=== PATIENT | female | born 1955 | race Caucasian/White ===

== ENCOUNTER → 2016-04-15 | Outpatient (REF) | payer BC ==
[~2016-04-15] MED LIST: /AMLO25TA PO; CATA0.1T PO; LEVO125T3 PO; MULTTAB4 PO
== END ==
LOC: M LAB REF 16:28
PROVIDERS: ATTEND Internal Medicine
DX: Z01.818 Encounter for other preprocedural examination (principal)

== ENCOUNTER → 2016-04-18 | Outpatient (CLI) | payer BC ==
--- NOTE | 2016-04-18 11:46 | REP ---
NUCLEAR RENAL SCINTIGRAPHY: Differential flow and function analysis and EGFR assessment. HISTORY: Hydronephrosis and hydroureter. Comparison CT study December 05, 2015. TECHNIQUE: The GFR portion of the study was accomplished with the injection of 3.2 mCi dose of technetium 99m DTPA. Renal cortical regions of interest are drawn for EGFR assessment functional analysis. This was followed by an 8.8 mCi technetium 99m MAG 3 is injected and sequential posterior flow and excretory phase images are acquired. Renal cortical regions of interest are drawn and time activity curves are plotted for renal functional analysis. SCINTIGRAPHIC FINDINGS: The EGFR study shows a GFR calculated for the left kidney 39.2 mL per minute and that for the right kidney and 54.5 mL per minute for an overall calculated GFR of 93.6 mL per minute. The Mag 3 flow study shows bilaterally sluggish radiotracer accumulation in the kidneys. No intrarenal mass is seen. Excretory phase images show caliectasis and dilation of intrarenal collecting system consistent with hydronephrosis on the left. There is some caliectasis on the right as well but no pyelectasis is seen. Postvoid images show retention of upper tract intrarenal collecting system activity on the left. Differential renal function analysis is asymmetric with 31% of overall renal cortical counts coming from the left kidney and 69% from the right. Wscc-jc-bbon max activity is somewhat delayed on the left at 9.0 minutes and normal on the right at 3.0 minutes. Lsxw-cl-znap max activity is somewhat delayed on the right at 16.6 minutes and more delayed on the left greater than 30 minutes. IMPRESSION: Hydronephrosis on the left. Cannot exclude obstructive uropathy. Normal calculated GFR although the right kidney GFR is larger than left. Signed by Patrick Ritchie MD 04/18/2016 01:42 P
== END ==
LOC: M RAD 09:38
PROVIDERS: ATTEND Urology
DX: N13.4 Hydroureter (principal); N13.30 Unspecified hydronephrosis

== ENCOUNTER → 2016-06-10 | Outpatient (CLI) | payer BC ==
[2016-06-10 10:13] LABS: CORTISOL AM 11.2 UG/DL (4.3-22.4)
== END ==
LOC: M LAB 08:53
PROVIDERS: ATTEND Internal Medicine Endocrinology, Diabetes & Metabolism
DX: D35.2 Benign neoplasm of pituitary gland (principal)

== ENCOUNTER → 2016-06-13 | Outpatient (CLI) | payer BC ==
[2016-06-13 09:32] LABS: CORTISOL AM 16.4 UG/DL (4.3-22.4)
== END ==
LOC: M LAB 06:17
DX: D35.2 Benign neoplasm of pituitary gland (principal)

== ENCOUNTER 2016-06-19 21:56 | Emergency (ER) | payer BC ==
[~2016-06-19] VITALS: Ht 172.7 cm; Wt 72.6 kg
[2016-06-19] MEDS ORDERED: PRED5PAK PO (22:08)
[2016-06-19] MEDS ORDERED: HYDR12.55 PO (22:08)
[2016-06-19] MEDS ORDERED: OXYMETAZOLINE NASAL SPRAY (AFRIN) ONE (22:30)
[2016-06-19] MEDS ORDERED: PERCOCET 5MG/325MG TAB PO ONE (23:45)
[2016-06-20] MEDS ORDERED: OXYC1TAB23 PO (00:12)
[2016-06-20] MEDS ORDERED: DOXY100C37 PO (00:12)
[2016-06-20 00:13] VITALS: BP 155/86
[2016-06-20] MEDS ORDERED: OXYCODONE/APAP 5MG/325MG(BULK FOR ED) 1 TABLET PO ONE (00:45)
[2016-06-20] MEDS ORDERED: LEVO137T2 PO (17:55)
[2016-06-21] MEDS ORDERED: PERC7.5T3 PO (11:12)
== END 2016-06-20 01:01 | disposition home or self-care (01) ==
LOC: M ED 23:43
DX: R04.0 Epistaxis (principal); E03.9 Hypothyroidism, unspecified; D69.1 Qualitative platelet defects; Z85.850 Personal history of malignant neoplasm of thyroid; Z90.89 Acquired absence of other organs; Z79.899 Other long term (current) drug therapy

== ENCOUNTER 2016-06-20 06:59 | Day surgery (SDC) | payer BC ==
[2016-06-20] VITALS (7 sets, daily range): BP systolic 136–178; BP diastolic 73–85
[~2016-06-20] VITALS: Ht 165.1 cm; Wt 72.6 kg
[~2016-06-20 06:59] MED LIST changes: +DOXY100C37 PO; +HYDR12.55 PO; +OXYC1TAB23 PO; +PRED5PAK PO
[2016-06-20] MEDS ORDERED: MIDAZOLAM INJ 2 MG/2 ML VIAL (J2250) As Ordered ONE ×2 (08:10→10:16)
[2016-06-20] MEDS ORDERED: MIDAZOLAM INJ 2 MG/2 ML VIAL (J2250) IV STA (08:55)
[2016-06-20 09:38] LABS: MEAN CORPUSCULAR HEMOGLOBIN 21.7 pg (27.0-33.0); MEAN CORPUSCULAR HGB CONC 30.6 g/dl (32.0-36.5); MEAN CORPUSCULAR VOLUME 70.9 fl (80.0-96.0); RED CELL DISTRIBUTION WIDTH 16.3 % (11.5-14.5); WHITE BLOOD COUNT 8.2 K/mm3 (4.0-10.0)
[2016-06-20 09:42] LABS: INR 1.04
[2016-06-20 09:57] LABS: ANION GAP 7 MEQ/L (8-16); BLOOD UREA NITROGEN 30 MG/DL (7-18); CALCIUM LEVEL 8.9 MG/DL (8.8-10.2); CARBON DIOXIDE LEVEL 29 MEQ/L (21-32); CHLORIDE LEVEL 104 MEQ/L (98-107); CREATININE FOR GFR 0.84 MG/DL (0.55-1.02); GLOMERULAR FILTRATION RATE > 60.0 (>45); GLUCOSE, FASTING 123 MG/DL (80-110); POTASSIUM SERUM 4.2 MEQ/L (3.5-5.1); SODIUM LEVEL 140 MEQ/L (136-145)
[2016-06-20] MEDS ORDERED: OXYMETAZOLINE NASAL SPRAY (AFRIN) As Ordered ONE (10:14)
[2016-06-20] MEDS ORDERED: PROPOFOL 200 MG/20 ML VIAL As Ordered ONE (10:16)
[2016-06-20] MEDS ORDERED: fentaNYL 100 MCG/2 ML INJECTION (J3010) As Ordered ONE ×2 (10:16→12:22)
[2016-06-20] MEDS ORDERED: SUCCINYLCHOLINE 100 MG/5 ML SYRINGE (J0330) As Ordered ONE (10:16)
[2016-06-20] MEDS ORDERED: ceFAZolin 2 GM/D5W 50 ML IV BAG (J0690) As Ordered ONE (10:17)
[2016-06-20] MEDS ORDERED: LIDOCAINE 2% INJ 100 MG/5 ML SDV (FOR ANES.) As Ordered ONE (10:18)
[2016-06-20] MEDS ORDERED: ePHEDrine SULFATE 25 MG/5 ML(5MG/ML) SYRINGE As Ordered ONE (10:44)
[2016-06-20] MEDS ORDERED: PHENYLephrine HCL 500 MCG/5 ML (100MCG/ML) SYRINGE (J2370) As Ordered ONE ×3 (10:44→11:20)
[2016-06-20] MEDS ORDERED: LIDOCAINE W/EPINEPHRINE 1% 20ML VIAL As Ordered ONE (10:46)
[2016-06-20] MEDS ORDERED: ONDANSETRON 4MG/2ML VIAL (J2405) As Ordered ONE ×2 (10:51→12:21)
[2016-06-20] MEDS ORDERED: dexameTHASONE 4 MG/ML 1ML VIAL (J1100) As Ordered ONE (10:52)
[2016-06-20] MEDS ORDERED: PERCOCET 5MG/325MG TAB As Ordered ONE (12:22)
[2016-06-20] MEDS: fentaNYL 100 MCG/2 ML INJECTION (J3010) IV PRN ×4 (12:25→12:45)
[2016-06-20] MEDS ORDERED: PERCOCET 5MG/325MG TAB PO PRN ×2 (12:30)
[2016-06-20] MEDS ORDERED: LR 1,000 ML IV SCH ×2 (12:30→15:30)
[2016-06-20] MEDS ORDERED: ACETAMINOPHEN 325 MG TAB PO PRN (12:30)
[2016-06-20] MEDS: PERCOCET 5MG/325MG TAB PO PRN ×3 (12:42→23:12)
[2016-06-20] MEDS ORDERED: ONDANSETRON 4MG/2ML VIAL (J2405) IV PRN (12:45)
[2016-06-20] MEDS ORDERED: SODIUM CHLORIDE NASAL 0.65% SPRAY BTL (OCEAN) PRN (13:00)
[2016-06-20 13:13] LABS: MEAN CORPUSCULAR HEMOGLOBIN 21.8 pg (27.0-33.0); MEAN CORPUSCULAR HGB CONC 30.4 g/dl (32.0-36.5); MEAN CORPUSCULAR VOLUME 71.8 fl (80.0-96.0); RED CELL DISTRIBUTION WIDTH 16.4 % (11.5-14.5); WHITE BLOOD COUNT 10.2 K/mm3 (4.0-10.0)
[2016-06-20] MEDS ORDERED: PROMETHAZINE INJ 25 MG/ML VIAL (J2550) As Ordered ONE (13:15)
[2016-06-20] MEDS ORDERED: PROMETHAZINE INJ 25 MG/ML VIAL (J2550) IV ONE (13:30)
[2016-06-20] MEDS: predniSONE 5 MG TAB PO SCH (15:29)
--- NOTE | 2016-06-20 15:37 | CR.PDOC ---
[facility] Consultation Consultation DATE OF CONSULTATION: Jun 20, 2016 at 09:40 PRIMARY CARE PHYSICIAN: Aggie Mattson DO REFERRING PROVIDER: Mejia Montemayor M.D. ATTENDING PHYSICIAN: Dr. Tidwell of ENT REASON FOR CONSULTATION/CHIEF COMPLAINT: . HISTORY OF PRESENT ILLNESS: . 61-year-old female with past medical history of hyperthyroidism, thyroid cancer status post total thyroidectomy 25 years ago, nephrolithiasis, and Acromegaly status post recent resection of pituitary adenoma at [facility] in [facility] on 06/02/16 presents to the ER with a chief complaint of epistasis. The patient states that she awoke 3:00 in the morning on Monday morning coughing with blood gushing from her nose. She presented to the ER, at which time she had anterior nare packing placed. Upon returning home, the patient had more episodes of epistaxis and returned to the ER for further evaluation and management. She was seen by ENT in the ER, and she was subsequently taken to the operating room where she has had a nasal endoscopy with cauterization of the posterior epistasis. Currently, the patient states she is feeling better, but is still complaining of some pain from the surgical area. She was seen in the postoperative anesthesia unit, and the patient did not offer any further complaints of fevers, chills, shortness of breath, chest pain, palpitations, abdominal pain, or any nausea/vomiting/diarrhea.. At this time, the hospitalist service has been consulted for further assistance in management of the patient's chronic medical comorbidities. ALLERGIES: Please see below. HOME MEDICATIONS: Please see below. PAST MEDICAL HISTORY: As noted in HPI PAST SURGICAL HISTORY: Partial hysterectomy, total thyroidectomy, dilatation and curettage, section, resection of pituitary adenoma on 06/02/16 at [facility], and posterior epistasis status post cauterization during this admission FAMILY HISTORY: Noncontributory SOCIAL HISTORY: Denies any use of tobacco, drinks alcohol occasionally, denies illicit drug use area and lives at home with her and children. REVIEW OF SYSTEMS: 10 point review of systems negative unless otherwise specified in HPI. PHYSICAL EXAMINATION: VITAL SIGNS: Please see below. GENERAL APPEARANCE: . Awake, alert, in mild distress HEENT: . Patient noted to have surgical dressing placed over the upper lip. No active bleeding noted from the nares bilaterally. RESPIRATORY: . Clear to auscultation bilaterally CARDIOVASCULAR: . Normal rate, normal rhythm ABDOMEN: . Soft, nontender, nondistended EXTREMITIES: . No erythema, no tenderness, no swelling LABORATORY DATA: Please see below. ASSESSMENT/PLAN: Posterior epistaxis Status post nasal endoscopy and cauterization No active bleeding noted at this time Hemoglobin prior to and following cauterization noted to be stable Patient noted to be hemodynamically stable at this time We will continue to monitor the patient's H&H ENT on board Thrombocytopenia Platelet count noted to be 79,000 on repeat CBC Platelet count was noted to be 60,000 on admission Looking at the chart, it appears that the patient has been having issues with thrombocytopenia since 2009 At this time, given that the patient does not have any active bleeding, and her hemoglobin has remained stable and we will withhold transfusing any platelets However, if the patient's hemoglobin trends downward, or she develops any active bleeding, we can consider transfusing platelets. Hypertension Blood pressure mildly elevated likely secondary to pain following surgery We will withhold the patient's blood pressure medication for now, in case the patient has any further bleeding episodes Percocet ordered for pain management Acromegaly status post resection of pituitary adenoma Procedure performed at [facility] on 06/02/16 Patient states that she has been put on 5 mg of prednisone since, and we will continue this Thyroid cancer status post total thyroidectomy We will check TSH levels Continue levothyroxine for now DVT prophylaxis-TEDs Vital Signs/I&O Vital Signs Date Time Temp Pulse Resp B/P Pulse Ox O2 Delivery O2 Flow Rate FiO2 06/20/16 14:31 Room Air 06/20/16 14:00 109 18 152/73 100 06/20/16 13:45 97.5 Laboratory Data Labs 24H Laboratory Tests 2 06/20/16 09:26: Activated Partial Thromboplast Time 31.3, Anion Gap 7L, Blood Urea Nitrogen 30H , Creatinine 0.84, Sodium Level 140, Potassium Level 4.2, Chloride Level 104, Carbon Dioxide Level 29, Calcium Level 8.9, Glomerular Filtration Rate > 60.0, Prothromb Time International Ratio 1.04, Prothrombin Time 13.7, Thyroid Stimulating Hormone (TSH) 0.063L CBC/BMP Laboratory Tests 06/20/16 09:26 Calcium Level 8.9, Red Blood Count 4.66, Mean Corpuscular Volume 70.9 L, Mean Corpuscular Hemoglobin 21.7 L, Mean Corpuscular Hemoglobin Concent 30.6 L, Red Cell Distribution Width 16.3 H 06/20/16 12:36 Red Blood Count 4.59, Mean Corpuscular Volume 71.8 L, Mean Corpuscular Hemoglobin 21.8 L, Mean Corpuscular Hemoglobin Concent 30.4 L, Red Cell Distribution Width 16.4 H Allergies Coded Allergies: No Known Drug Allergy (Unverified Allergy, Unknown, 06/28/12) Home Medications Scheduled Doxycycline Monohydrate (Doxycycline Monohydrate) 100 Mg Cap #20 100 MG PO Q12H Hydrochlorothiazide (Hydrochlorothiazide) 12.5 Mg Tab 25 MG PO DAILY (Reported ) Levothyroxine Sodium (Levothyroxine Sodium) 125 Mcg Tab 137 MCG PO DAILY ( Reported) Scheduled PRN Oxycodone/Acetaminophen (Oxycodone/Acetaminophen 5-325 mg) 1 Tab Tab #20 1 TAB PO Q6HP PRN PRN PAIN OR FEVER Miscellaneous Medications Prednisone (Prednisone) 5 Mg Weston 5 MG PO (Reported) MEJIA MONTEMAYOR MD Jun 20, 2016 15:37
[2016-06-20] MEDS ORDERED: MORPHINE 2 MG/ML 1ML SYRINGE IV PRN (15:45)
[2016-06-20] MEDS ORDERED: MORPHINE 2 MG/ML 1ML SYRINGE As Ordered ONE (15:52)
[2016-06-20] MEDS: SODIUM CHLORIDE NASAL 0.65% SPRAY BTL (OCEAN) SCH ×2 (16:23→22:00)
[2016-06-20] MEDS: LEVOTHYROXINE 0.137 MG TAB (137MCG) PO SCH (17:24)
[2016-06-20] MEDS: ceFAZolin SOD 1 GM in D5W MINI-BAG PLUS 50 ML IV SCH (17:36)
[2016-06-20] MEDS ORDERED: LEVO137T2 PO (17:55)
[2016-06-21] MEDS: ceFAZolin SOD 1 GM in D5W MINI-BAG PLUS 50 ML IV SCH ×2 (02:05→08:43)
[2016-06-21 03:15] VITALS: BP 115/69
[2016-06-21] MEDS: LEVOTHYROXINE 0.137 MG TAB (137MCG) PO SCH (06:06)
[2016-06-21] MEDS: PERCOCET 5MG/325MG TAB PO PRN ×2 (06:07→09:57)
[2016-06-21 07:17] LABS: MEAN CORPUSCULAR HEMOGLOBIN 21.7 pg (27.0-33.0); MEAN CORPUSCULAR HGB CONC 30.1 g/dl (32.0-36.5); MEAN CORPUSCULAR VOLUME 72.1 fl (80.0-96.0); RED CELL DISTRIBUTION WIDTH 16.7 % (11.5-14.5); WHITE BLOOD COUNT 10.9 K/mm3 (4.0-10.0)
[2016-06-21 07:26] LABS: CALCIUM LEVEL 8.7 MG/DL (8.8-10.2); CREATININE FOR GFR 1.11 MG/DL (0.55-1.02); GLOMERULAR FILTRATION RATE 53.4 (>45); POTASSIUM SERUM 4.2 MEQ/L (3.5-5.1)
[2016-06-21] MEDS: predniSONE 5 MG TAB PO SCH (08:43)
[2016-06-21] MEDS: SODIUM CHLORIDE NASAL 0.65% SPRAY BTL (OCEAN) SCH (08:44)
--- NOTE | 2016-06-21 10:09 | ROOPDOC ---
[facility] Report Of Operation Report of Operation DATE OF PROCEDURE: 06/20/16 PREPROCEDURE DIAGNOSIS: Left posterior epistaxis 3 weeks status post transsphenoidal resection of pituitary adenoma POSTPROCEDURE DIAGNOSIS: See above PROCEDURE: 1. Left inferior turbinate outfracture 2. Left endoscopic control of epistaxis with cautery 3. Biopsy of left nasopharyngeal tissue SURGEON: Shashi Mary M.D. ELECTRICAL ACCESSORIES I ASSEMBLER: None ANESTHESIA: General endotracheal Packing placed would include re-absorbable Surgicel and nasal pore Estimated blood loss would be approximately 100 mL during the procedure FINDINGS: The patient was found to have generalized oozing from the mid and posterior portion of the nasal septum. Posteriorly there appeared to be a mucosal flap near the rostrum of the sphenoid sinus. There appeared to be loose mucosa in this area that was partially resected and cauterized with the suction cautery. There were large clots removed from this area and irrigated away. There appeared to be some loose tissue but this may have been organized blood clots. These were sent for pathologic evaluation. There did not appear to be arterial bleeding or significant bleeding at the posterior edge of the inferior turbinate or in the area of the sphenopalatine artery. Bioabsorbable Surgicel and nasal pore packing material is placed at the end of the procedure at the surgical site. DESCRIPTION OF PROCEDURE: The patient was seen initially in the emergency room where nasal endoscopy was carried out and silver nitrate cautery was carried out however due to the large clot and significant discomfort in the left nasal passageway it was decided that the patient should be taken to the operating room. This was discussed with the patient and her and she was therefore taken emergently to the operating room for endoscopic evaluation and cautery as needed. It should also be noted that I spoke with Dr. Mejia who is her neurosurgeon in [place] prior to the procedure to discuss the case. He fully agreed with the procedure and discussed with me the surgical approach at the posterior septum. The patient was taken to the operating room and given a successful general endotracheal anesthetic. A timeout was performed. The nasal area was prepped and draped with Betadine. Nasal pledgets soaked in Afrin were placed in the left nasal passageway. The patient was placed in a modified beachchair position. Initially using a headlight the nasal passageway on the left and the right were suctioned. A 0 4 mm scope was then used to evaluate both the right and left nasal passageway. No bleeding or significant clots were noted on the right side. On the left side we irrigated the blood clots away using a significant amount of saline to carefully remove the blood clots under visualization with the nasal endoscope. Once we removed the clots we use the nasal scope with the Endo sheath to allow for careful visualization of the posterior nasal and septal mucosa. We outfractured the left inferior turbinate to provide for better visualization as there was a small but somewhat prominent inferior septal spur on the left side. We cauterized several mid and posterior mucosal oozing edges before approaching the posterior septum and superiorly we were able to see a flap of mucosa that appeared to be slightly displaced. The bleeding appeared to be coming from this area and this did not appear to be arterial. We used suction cautery to cauterize the edges of the mucosa and more superiorly towards the rostrum of the sphenoid sinus. We were careful to irrigate away the blood and debris in this area and we noted what appeared to be a free-floating or minimally attached mucosal edge at the inferior area of the nasal septum. His was removed with a [employer] iván forcep and the area was cauterized. This may have been a very well organized blood clot. Careful irrigation was carried out throughout this area. As completed, we placed Surgicel and a section of nasal pore both of which are bioabsorbable. We then gently irrigated out the nose specifically the left nostril over a period of about 10 minutes during which time there was no active bleeding whatsoever. We placed several nasal pledgets in the nose soaked in Afrin during this time. An remove these and these appeared to show no evidence of active bleeding. He also suctioned out the throat to make sure that all blood clots were removed from the patient's oropharynx. At this point the procedure was terminated and all nasal pledgets were removed. At the end of the procedure the sharp count and sponge count and nasal pledget count were correct. Should be noted that we injected approximately 3 mL of 1% lidocaine with epinephrine 1 100,000 into the nasal pore at the end of the procedure. The patient was awakened and extubated and taken to the recovery room in stable condition. Noted to be no complications. The patient did have a fingerstick hemoglobin during the procedure which was 8.8. The patient was taken in stable condition to the PACU. SHASHI MARY MD Jun 20, 2016 16:40
--- NOTE | 2016-06-21 10:24 | IPNPDOC ---
Subjective Date Seen The patient was seen on 06/21/16. She has had no further bleeding. She c/o left eye sensitivity and headache ( 8 - 9/10) relieved somewhat by percocet (she needs 2 of the 5/325 tablets) She has been sleeping, ambulating and tolerating po relatively well. No nausea or vomiting. Subjective Chief Complaint/HPI The patient is a 61-year-old female admitted for ER visit of Left Epistaxis. She is on day 1 postop for control of left sided posterior epistaxis. Please see above. Objective Physical Examination Other physical findings No visual changes with EOMs intact and reactive pupils No nasal bleeding voice is normal Assessment /Plan Assessment She is stable but continues to have a significant headache No further epistaxis Plan is likely discharge home with pain control (Percocet 7.5/325 1-2 po prn pain) F/U in 2 days for nasal endoscopy/debridement gentle nasal irrigations no nose blowing reviewed D/C instructions with the patient and her Also noted stable Hct and Hgb Plan/VTE VTE Prophylaxis Ordered?: Yes VTE Exclusion Mechanical Proph: Low Risk for VTE VS, I&O, 24H, Pending Sale To [facility] Vital Signs/I&O Vital Signs Date Time Temp Pulse Resp B/P Pulse Ox O2 Delivery O2 Flow Rate FiO2 06/21/16 09:57 16 06/21/16 06:07 Room Air 06/21/16 03:15 97.3 64 115/69 95 I&O- Last 24 Hours up to 6 AM 06/21/16 05:59 Intake Total 2260 ml Output Total 2400 ml Balance -140 ml Laboratory Data 24H LABS Laboratory Tests 2 06/21/16 06:43: Anion Gap 12, Blood Urea Nitrogen 25H, Creatinine 1.11H, Sodium Level 139, Potassium Level 4.2, Chloride Level 103, Carbon Dioxide Level 24, Calcium Level 8.7L, Glomerular Filtration Rate 53.4 CBC/BMP Laboratory Tests 06/20/16 12:36 Red Blood Count 4.59, Mean Corpuscular Volume 71.8 L, Mean Corpuscular Hemoglobin 21.8 L, Mean Corpuscular Hemoglobin Concent 30.4 L, Red Cell Distribution Width 16.4 H 06/20/16 18:56 06/21/16 01:04 06/21/16 06:43 Red Blood Count 4.35, Mean Corpuscular Volume 72.1 L, Mean Corpuscular Hemoglobin 21.7 L, Mean Corpuscular Hemoglobin Concent 30.1 L, Red Cell Distribution Width 16.7 H, Calcium Level 8.7 L SHASHI MARY MD Jun 21, 2016 10:24
[2016-06-21] MEDS ORDERED: PERC7.5T3 PO (11:12)
--- NOTE | 2016-06-21 16:28 | IPN ---
DATE: 06/21/2016 Patient is seen and examined, reported bitemporal headache. Denies any vision change, hearing change, nausea or vomiting. Denies any chest pain, pressure or discomfort. No further episode of epistaxis. VITAL SIGNS: Temperature 97.3, pulse 64, respiration 12, blood pressure 115/69, pulse oximetry 95% on room air. LABORATORY DATA: WBC 10.9, hemoglobin and hematocrit 9.4/31.3, platelets 66. Chemistry: Sodium 139, potassium 4.2, chloride 103, bicarbonate 24, BUN 25, creatinine 1.1. PHYSICAL EXAMINATION: GENERAL: Patient awake, alert, in no acute distress. HEENT: Normocephalic, atraumatic. No active bleeding. RESPIRATORY: Bilaterally clear to auscultation. CARDIAC: Regular rate and rhythm with normal S1, S2. ABDOMEN: Soft, nontender, nondistended. Positive bowel sounds. EXTREMITIES: No edema of bilateral lower extremities. ASSESSMENT AND PLAN: This is a 61-year-old female patient with underlying medical history of thyroid cancer status post total thyroidectomy with subsequent hypothyroidism, nephrolithiasis, acromegaly status post recent resection of pituitary adenoma at [facility] in [place] 06/02/2016. Patient presented with complaints of epistaxis, admitted under ears, nose and throat (ENT) service, status post nasal endoscopy with cauterization. Perioperative management, antibiotics, and pain regimen as per ENT. Monitor hemoglobin and hematocrit. Discharge as per ENT. Thrombocytopenia. Monitor platelets. Outpatient followup. Currently at baseline. Hypertension. Monitor blood pressure. Continue blood pressure medications. Hypothyroidism. Continue Synthroid. History of acromegaly with removal of pituitary adenoma. Followup with surgeons at [facility]. Deep vein thrombosis (DVT) prophylaxis. Thromboembolic-deterrent stockings (TEDS) and sequential compression device. No pharmacological agent given epistaxis. DISPOSITION: As per ENT, patient likely can be discharged today with outpatient followup.
== END 2016-06-21 12:20 | disposition home or self-care (01) ==
LOC: M ED 07:26 → M SDC 09:40 → M MS5PR 15:00 → M SDC 06-21 12:20
PROVIDERS: ATTEND Otolaryngology
DX: R04.0 Epistaxis (principal); E03.9 Hypothyroidism, unspecified; Z79.899 Other long term (current) drug therapy
CPT/HCPCS: 30930; 31238; 36415; 80048; 84436; 84443; 85014; 85018; 85027; 85610; 85730; 86850; 86870; 86900; 86901; 88305; 96374; 96375; 96376; 99284; J0330; J0690; J1100; J2250; J2370; J2405; J3010

== ENCOUNTER → 2016-07-15 | Outpatient (CLI) | payer BC ==
[~2016-07-15] MED LIST changes: +LEVO137T2 PO; +PERC7.5T3 PO
[2016-07-15 08:56] LABS: FREE T4 1.37 NG/DL (0.76-1.46); THYROXINE (T4) 12.9 UG/DL (4.5-12.0)
[2016-07-15 11:58] LABS: CORTISOL AM 21.4 UG/DL (4.3-22.4)
[2016-07-15 11:59] LABS: LUTEINIZING HORMONE 37.6 mIU/mL; PROLACTIN 8.8 NG/ML
[2016-07-15 12:00] LABS: FOLLICLE STIMULATING HORMONE 99.8 mIU/mL
== END ==
LOC: M LAB 06:18
PROVIDERS: ATTEND Internal Medicine Endocrinology, Diabetes & Metabolism
DX: E22.0 Acromegaly and pituitary gigantism (principal)

== ENCOUNTER → 2016-07-15 | Outpatient (CLI) | payer BC ==
[2016-07-15 08:56] LABS: FREE T4 1.35 NG/DL (0.76-1.46)
[2016-07-15 11:57] LABS: CORTISOL AM 21.6 UG/DL (4.3-22.4); FOLLICLE STIMULATING HORMONE 94.2 mIU/mL; LUTEINIZING HORMONE 36.2 mIU/mL
== END ==
LOC: M LAB 06:16
PROVIDERS: ATTEND Internal Medicine Endocrinology, Diabetes & Metabolism
DX: E22.0 Acromegaly and pituitary gigantism (principal)

== ENCOUNTER → 2016-07-22 | Outpatient (CLI) | payer BC ==
--- NOTE | 2016-07-22 11:45 | REP ---
PELVIC ULTRASOUND: Real-time sonographic evaluation of the pelvis is performed utilizing transabdominal and endovaginal technique. The patient has had a prior hysterectomy and left salpingo-oophorectomy. The bladder measures 4.6 x 8.2 x 2.4 cm. Right ovary is visualized and measures 2.2 x 1.6 x 2.5 cm. It contains a tiny cystic structure 2.0 x 1.2 x 1.5 cm. There is blood flow in the right ovary with duplex Doppler evaluation, with no torsion, RI of the right ovary is 0.42. There is no adnexal mass or free fluid. IMPRESSION: Small cystic structure in the right ovary 2 cm in diameter. No mass or free fluid.
== END ==
LOC: M WHC 10:16
PROVIDERS: ATTEND Obstetrics & Gynecology Gynecologic Oncology
DX: D39.12 Neoplasm of uncertain behavior of left ovary (principal)

== ENCOUNTER 2016-07-27 07:43 | Outpatient (CLI) | payer BC | END 2016-07-27 10:15 | disposition home or self-care (01) | LOC: M INFU 07:43 | PROVIDERS: ATTEND Internal Medicine Endocrinology, Diabetes & Metabolism | DX: E22.0 Acromegaly and pituitary gigantism (principal); Z79.899 Other long term (current) drug therapy ==

== ENCOUNTER → 2016-09-19 | Outpatient (REF) | payer BC ==
[2016-09-19 11:25] LABS: PERCENT SATURATION 5.2 % (13.2-37.4)
== END ==
LOC: M LAB REF 10:50
PROVIDERS: ATTEND Internal Medicine Medical Oncology
DX: C56.9 Malignant neoplasm of unspecified ovary (principal); D69.3 Immune thrombocytopenic purpura

== ENCOUNTER → 2016-11-03 | Outpatient (CLI) | payer BC ==
[~2016-11-03] MED LIST changes: +PERC7.5T11 PO; -PERC7.5T3 PO
[2016-11-03 07:51] LABS: CALCIUM LEVEL 9.1 MG/DL (8.8-10.2)
[2016-11-03 08:42] LABS: FREE T4 1.52 NG/DL (0.76-1.46)
== END ==
LOC: M LAB 07:01
PROVIDERS: ATTEND Internal Medicine Endocrinology, Diabetes & Metabolism
DX: N20.0 Calculus of kidney (principal); E22.0 Acromegaly and pituitary gigantism; E89.0 Postprocedural hypothyroidism

== ENCOUNTER → 2016-11-08 | Outpatient (REF) | payer BC ==
[2016-11-08 15:24] LABS: PERCENT SATURATION 4.8 % (13.2-45.0)
== END ==
LOC: M LAB REF 12:49
PROVIDERS: ATTEND Internal Medicine Medical Oncology
DX: C56.9 Malignant neoplasm of unspecified ovary (principal)

== ENCOUNTER 2016-12-15 07:34 | Outpatient (CLI) | payer BC | END 2016-12-15 11:00 | disposition home or self-care (01) | LOC: M INFU 07:34 | PROVIDERS: ATTEND Internal Medicine Endocrinology, Diabetes & Metabolism | DX: E22.0 Acromegaly and pituitary gigantism (principal); E89.0 Postprocedural hypothyroidism; E11.9 Type 2 diabetes mellitus without complications; I10 Essential (primary) hypertension; Z79.899 Other long term (current) drug therapy; Z85.850 Personal history of malignant neoplasm of thyroid ==

== ENCOUNTER → 2016-12-26 | Outpatient (REF) | payer BC ==
[2016-12-26 13:30] LABS: CALCIUM LEVEL 9.2 MG/DL (8.8-10.2); FREE T4 1.42 NG/DL (0.76-1.46); PHOSPHORUS LEVEL 3.4 MG/DL (2.5-4.9)
[2017-01-02 13:10] LABS: THYROGLOBULIN ANTIBODY 32; THYROGLOBULIN INTERPRETATION SEE SEPARATE REPORT; THYROGLOBULIN TUMOR MARKER <0.1
== END ==
LOC: M LABNEURO 10:03
PROVIDERS: ATTEND Internal Medicine Endocrinology, Diabetes & Metabolism
DX: E89.0 Postprocedural hypothyroidism (principal); N20.0 Calculus of kidney

== ENCOUNTER → 2017-02-14 | Outpatient (REF) | payer BC ==
[2017-02-14 14:34] LABS: ANION GAP 6 MEQ/L (8-16); BLOOD UREA NITROGEN 16 MG/DL (7-18); CALCIUM LEVEL 9.1 MG/DL (8.8-10.2); CARBON DIOXIDE LEVEL 27 MEQ/L (21-32); CHLORIDE LEVEL 106 MEQ/L (98-107); CREATININE FOR GFR 0.84 MG/DL (0.55-1.02); GLOMERULAR FILTRATION RATE > 60.0 (>45); GLUCOSE, FASTING 138 MG/DL (80-110); POTASSIUM SERUM 4.4 MEQ/L (3.5-5.1); SODIUM LEVEL 139 MEQ/L (136-145)
== END ==
LOC: M LABNEURO 13:36
DX: D35.2 Benign neoplasm of pituitary gland (principal); D35.3 Benign neoplasm of craniopharyngeal duct

== ENCOUNTER → 2017-04-03 | Outpatient (REF) | payer BC ==
[2017-04-03 13:03] LABS: APPEARANCE, URINE CLEAR (CLEAR); BACTERIA, URINE AUTO NEGATIVE (NEGATIVE); BILIRUBIN, URINE AUTO NEGATIVE (NEGATIVE); BLOOD, URINE BLOOD 2+ (NEGATIVE); COLOR, URINE YELLOW (YELLOW); GLUCOSE, URINE (UA) AUTO NEGATIVE (NEGATIVE); KETONE, URINE AUTO NEGATIVE (NEGATIVE); LEUKOCYTE ESTERASE, URINE AUTO 1+ (NEGATIVE); MUCUS, URINE SMALL (NEGATIVE); NITRITE, URINE AUTO NEGATIVE (NEGATIVE); PROTEIN, URINE AUTO NEGATIVE (NEGATIVE); RBC, URINE AUTO 10 /HPF (0-3); SPECIFIC GRAVITY URINE AUTO 1.016 (1.002-1.035); SQUAMOUS EPITHELIAL CELL UR AU 1 /HPF (0-6); UROBILINOGEN, URINE AUTO 0.2 mg/dL (0.0-2.0); WBC, URINE AUTO 7 /HPF (0-3)
== END ==
LOC: M LAB REF 11:56
DX: Z01.818 Encounter for other preprocedural examination (principal)
CPT/HCPCS: 81001

== ENCOUNTER → 2017-05-16 | Outpatient (REF) | payer BC ==
[2017-05-19 00:06] LABS: INHIBIN A ULTRASENSITIVE 1.1 pg/mL (.)
[2017-05-19 00:06] LABS: INHIBIN B <7.0 pg/mL (0.0-16.9)
== END ==
LOC: M LABNEURO 09:06
DX: D39.12 Neoplasm of uncertain behavior of left ovary (principal)
CPT/HCPCS: 83520

== ENCOUNTER → 2017-05-16 | Outpatient (REF) | payer BC ==
[2017-05-16 14:58] LABS: CALCIUM LEVEL 9.6 MG/DL (8.8-10.2)
[2017-05-16 14:58] LABS: FREE T4 1.39 NG/DL (0.76-1.46); PHOSPHORUS LEVEL 3.3 MG/DL (2.5-4.9)
[2017-05-18 10:14] LABS: SOMATOMEDIN-C INSULIN GROWTH 249 ng/mL (46-172)
== END ==
LOC: M LABNEURO 09:02
DX: E89.0 Postprocedural hypothyroidism (principal); E21.0 Primary hyperparathyroidism
CPT/HCPCS: 82310

== ENCOUNTER → 2017-05-31 | Outpatient (CLI) | payer BC ==
[~2017-05-31] MED LIST changes: -/AMLO25TA PO; -CATA0.1T PO; -DOXY100C37 PO; +GASTROGRAFIN SOLUTION 30ML (Q9963) As Ordered; -HYDR12.55 PO; +ISOVUE-370 76% 100ML VIAL (Q9967) As Ordered; -LEVO125T3 PO; -LEVO137T2 PO; -MULTTAB4 PO; -OXYC1TAB23 PO; -PERC7.5T11 PO; -PRED5PAK PO
== END ==
LOC: M RAD 09:31
DX: D39.12 Neoplasm of uncertain behavior of left ovary (principal)

== ENCOUNTER → 2017-06-01 | Outpatient (CLI) | payer BC | LOC: M RAD 09:30 | DX: Z53.29 Procedure and treatment not carried out because of patient's decision for other reasons (principal); E21.0 Primary hyperparathyroidism ==

== ENCOUNTER → 2017-08-15 | Outpatient (CLI) | payer BC | LOC: M WHC 12:24 | DX: Z12.31 Encounter for screening mammogram for malignant neoplasm of breast (principal); R92.8 Other abnormal and inconclusive findings on diagnostic imaging of breast | CPT/HCPCS: 77067 ==

== ENCOUNTER → 2018-05-11 | Outpatient (REF) | payer BC ==
[~2018-05-11] MED LIST changes: +/AMLO25TA PO; +CATA0.1T PO; +DOXY100C37 PO; -GASTROGRAFIN SOLUTION 30ML (Q9963) As Ordered; +HYDR12.55 PO; -ISOVUE-370 76% 100ML VIAL (Q9967) As Ordered; +LEVO125T3 PO; +LEVO137T2 PO; +MULTTAB4 PO; +OXYC1TAB23 PO; +PERC7.5T11 PO; +PRED5PAK PO
[2018-05-11 13:44] LABS: BLOOD UREA NITROGEN 25 MG/DL (7-18); CALCIUM LEVEL 8.9 MG/DL (8.8-10.2); CARBON DIOXIDE LEVEL 30 MEQ/L (21-32); CHLORIDE LEVEL 104 MEQ/L (98-107); CREATININE FOR GFR 0.92 MG/DL (0.55-1.30); GLOMERULAR FILTRATION RATE > 60.0 (>45); GLUCOSE, FASTING 131 MG/DL (70-100); POTASSIUM SERUM 4.3 MEQ/L (3.5-5.1); SODIUM LEVEL 141 MEQ/L (136-145)
== END ==
LOC: M LABNEURO 08:32
PROVIDERS: ATTEND Neurological Surgery
DX: D35.2 Benign neoplasm of pituitary gland (principal); D35.3 Benign neoplasm of craniopharyngeal duct

== ENCOUNTER → 2018-07-19 | Outpatient (REF) | payer BC ==
[~2018-07-19] MED LIST changes: -/AMLO25TA PO; +NORV2TAB PO
== END ==
LOC: M SFHCPLAZ 18:33
PROVIDERS: ATTEND Dermatology
DX: D48.5 Neoplasm of uncertain behavior of skin (principal)

== ENCOUNTER → 2018-12-19 | Outpatient (CLI) | payer BC ==
--- NOTE | 2018-12-19 09:03 | REPMRS ---
Patient History The patient states she had a clinical breast exam in 07/2018. Family history of ovarian cancer at age 50 or over in maternal aunt. 3D TOMOSYNTHESIS WAS PERFORMED. The [facility] lifetime risk for breast cancer is 7.1%. Digital Woman Screen Mammo: December 19, 2018 - Exam #: [id number] Bilateral CC and MLO view(s) were taken. Technologist: Rubia Maya, Technologist Prior study comparison: August 15, 2017, digital woman screen mammo performed at [facility]. May 19, 2015, digital woman screen mammo performed at [facility]. FINDINGS: The breast tissue is heterogeneously dense. This may lower the sensitivity of mammography. There has been no change in the appearance of the mammogram from the prior studies. There is a moderate amount of residual fibroglandular tissue which is fairly symmetric. There is no interval development of dominant mass, areas of architectural distortion, or clustered microcalcification typical of malignancy. Assessment: BI-RADS/ACR category 1 mammogram. Negative Mammogram. Recommendation Routine screening mammogram in 1 year (for women over age 40). This mammogram was interpreted with the aid of an FDA-approved computer-aided dectection system. Electronically Signed By: Walter Dunbar MD 12/19/18 0902
== END ==
LOC: M WHC 07:52
PROVIDERS: ATTEND Obstetrics & Gynecology Gynecologic Oncology
DX: Z12.31 Encounter for screening mammogram for malignant neoplasm of breast (principal)

== ENCOUNTER → 2019-05-17 | Outpatient (REF) | payer BC ==
[2019-05-17 15:32] LABS: BLOOD UREA NITROGEN 19 MG/DL (7-18); CALCIUM LEVEL 10.3 MG/DL (8.8-10.2); CARBON DIOXIDE LEVEL 32 MEQ/L (21-32); CHLORIDE LEVEL 106 MEQ/L (98-107); CREATININE FOR GFR 0.94 MG/DL (0.55-1.30); GLOMERULAR FILTRATION RATE > 60.0 (>45); GLUCOSE, FASTING 96 MG/DL (70-100); POTASSIUM SERUM 4.1 MEQ/L (3.5-5.1); SODIUM LEVEL 139 MEQ/L (136-145)
== END ==
LOC: M LABDRAW1 12:43
PROVIDERS: ATTEND Neurological Surgery
DX: D35.2 Benign neoplasm of pituitary gland (principal)

== ENCOUNTER → 2020-01-03 | Outpatient (REF) | payer OTHER ==
[2020-01-03 17:01] LABS: AMORPHOUS SEDIMENT SMALL (NEGATIVE); APPEARANCE, URINE HAZY (CLEAR); BACTERIA, URINE AUTO NEGATIVE (NEGATIVE); BILIRUBIN, URINE AUTO NEGATIVE (NEGATIVE); BLOOD, URINE BLOOD 1+ (NEGATIVE); COLOR, URINE YELLOW (YELLOW); GLUCOSE, URINE (UA) AUTO NEGATIVE (NEGATIVE); KETONE, URINE AUTO NEGATIVE (NEGATIVE); LEUKOCYTE ESTERASE, URINE AUTO 1+ (NEGATIVE); NITRITE, URINE AUTO NEGATIVE (NEGATIVE); PROTEIN, URINE AUTO NEGATIVE (NEGATIVE); RBC, URINE AUTO 48 /HPF (0-3); SPECIFIC GRAVITY URINE AUTO 1.013 (1.002-1.035); SQUAMOUS EPITHELIAL CELL UR AU 0 /HPF (0-6); UROBILINOGEN, URINE AUTO 0.2 mg/dL (0.0-2.0); WBC, URINE AUTO 17 /HPF (0-3)
== END ==
LOC: M LAB REF 16:15
PROVIDERS: ATTEND Internal Medicine
DX: Z01.818 Encounter for other preprocedural examination (principal)

== ENCOUNTER → 2020-02-13 | Outpatient (CLI) | payer OTHER ==
--- NOTE | 2020-02-13 09:29 | REPMRS ---
Patient History The patient states she had a clinical breast exam in 01/2020. Patient has history of thyroid cancer at age 43. Family history of ovarian cancer at age 50 or over in maternal aunt. No Hormone Replacement Therapy 3D TOMOSYNTHESIS WAS PERFORMED. The [facility] lifetime risk for breast cancer is 6.8%. Volpara breast density c. Digital Woman Screen Mammo: February 13, 2020 - Exam #: [id number] Bilateral CC and MLO view(s) were taken. Technologist: Helen Ghosh, Technologist Prior study comparison: December 19, 2018, bilateral digital woman screen mammo performed at [facility]. August 15, 2017, digital woman screen mammo performed at [facility]. FINDINGS: The breast tissue is heterogeneously dense. This may lower the sensitivity of mammography. There has been no change in the appearance of the mammogram from the prior studies. There is a moderate amount of residual fibroglandular tissue which is fairly symmetric. There is no interval development of dominant mass, areas of architectural distortion, or clustered microcalcification typical of malignancy. Assessment: BI-RADS/ACR category 1 mammogram. Negative Mammogram. Recommendation Routine screening mammogram in 1 year (for women over age 40). This mammogram was interpreted with the aid of an FDA-approved computer-aided dectection system. Electronically Signed By: Walter Dunbar MD 02/13/20 0928
--- NOTE | 2020-02-13 09:51 | REP ---
INDICATION: AVINASH BREAST U/S FOR DENSE BREAST. COMPARISON: Mammogram 02/13/2020. TECHNIQUE: Real-time sonographic evaluation of bilateral breasts performed. FINDINGS: Real-time sonographic evaluation of the entire bilateral breasts is performed. A large benign calcification is seen at 12 o'clock in the right breast. There is an adjacent cyst 5 mm in diameter. A small cyst is also seen at the 11 o'clock position measuring 4 mm. At the 1 o'clock position of the right breast there is an oval hyperechoic nodule which measures 8 x 4 x 4 mm. Several lymph nodes are seen in both axillary regions, largest on the right measures 2.8 x 1.7 x 0.7 cm and left 1.8 x 1.9 x 0.9 cm. These appear morphologically unremarkable with no cortical thickening. No other cystic or solid nodule is seen in either breast. IMPRESSION: BIRADS/ACR category 4 suspicious. An oval hyperechoic nodule in the right breast at 1 o'clock measures 8 x 4 x 4 mm. Although this could represent a lipoma, the sonographic appearance is not specific. Recommend ultrasound-guided biopsy or MRI. RECOMMENDATION: Ultrasound-guided biopsy of hyperechoic nodule at 1 o'clock right breast, or alternatively further evaluation with MRI of the breasts. <Electronically signed by Walter Dunbar > 02/13/20 [id number]
== END ==
LOC: M WHC 07:57
PROVIDERS: ATTEND Nurse Practitioner
DX: R92.2 Inconclusive mammogram (principal); Z85.850 Personal history of malignant neoplasm of thyroid

== ENCOUNTER → 2020-02-14 | Outpatient (CLI) | payer OTHER ==
[2020-02-14 12:17] LABS: ALBUMIN 3.9 GM/DL (3.2-5.2); BILIRUBIN,TOTAL 0.9 MG/DL (0.2-1.0); CALCIUM LEVEL 9.9 MG/DL (8.8-10.2); GLOMERULAR FILTRATION RATE 59.6 (>45); MAGNESIUM LEVEL 1.9 MG/DL (1.8-2.4); POTASSIUM SERUM 4.1 MEQ/L (3.5-5.1); PTH INTACT 80.1 PG/ML (18.5-88.0); TOTAL PROTEIN 6.8 GM/DL (6.4-8.2)
== END ==
LOC: M WUC 08:11
PROVIDERS: ATTEND Internal Medicine Nephrology
DX: E83.52 Hypercalcemia (principal)

== ENCOUNTER → 2020-07-16 | Outpatient (CLI) | payer OTHER ==
--- NOTE | 2020-07-16 13:09 | REP ---
INDICATION: N63.3 RT BREAST NODULE,DENSE BREAST. COMPARISON: Comparison mammography 13 February 2020. Comparison sonography 13 February 2020.. TECHNIQUE: Whole breast/axillary ultrasound right breast. FINDINGS: Scanning of the right breast retroareolar and axillary region is performed. A benign calcification is seen 0.3 cm in diameter at 12 o'clock as before. This corresponds with mammogram. There is a 0.5 cm cyst again noted at 12 o'clock position. At 11 o'clock there is a 0.4 cm cyst. The hyperechoic area previously noted at the 1 o'clock position is no longer evident. there are 1 or 2 prominent retroareolar ducts seen. Multiple benign lymph nodes are noted in the axilla the largest of which measures 3.4 x 0.7 x 1.1 cm. This has a 1 mm thick cortical margin. IMPRESSION: BI-RADS category 2 benign findings. Repeat screening mammography recommended in January of 2021. <Electronically signed by Uri Ritchie > 07/16/20 [id number]
== END ==
LOC: M WHC 07:29
PROVIDERS: ATTEND Nurse Practitioner
DX: N63.31 Unspecified lump in axillary tail of the right breast (principal)

== ENCOUNTER 2020-07-31 16:09 | Emergency (ER) | payer OTHER ==
[~2020-07-31] VITALS: Ht 175.3 cm; Wt 73.0 kg
[2020-07-31] MEDS ORDERED: CABE0.5T (16:31)
[2020-07-31] MEDS ORDERED: HYDR12CA (16:31)
[2020-07-31] MEDS ORDERED: POTA4.25 (16:31)
[2020-07-31] MEDS ORDERED: SYNT112T2 (16:31)
[2020-07-31] MEDS ORDERED: JANU100T (16:31)
[2020-07-31 17:50] LABS: BASO % 0.3 % (0.0-1.0); EOS # 0.2 10^3/uL (0.0-0.5); HEMATOCRIT 45.4 % (36.0-47.0); HEMOGLOBIN 15.2 g/dl (12.0-15.5); LYMPH # 1.7 10^3/uL (1.5-5.0); LYMPH % 16.5 % (24.0-44.0); MEAN CORPUSCULAR HEMOGLOBIN 26.2 pg (27.0-33.0); MEAN CORPUSCULAR HGB CONC 33.5 g/dl (32.0-36.5); MEAN CORPUSCULAR VOLUME 78.3 fl (80.0-96.0); MONO # 0.5 10^3/uL (0.0-0.8); MONO % 4.6 % (2.0-8.0); NEUTROPHILS # 7.6 10^3/uL (1.5-8.5); NEUTROPHILS % 76.2 % (36.0-66.0)
[2020-07-31] MEDS ORDERED: PHENAZOPYRIDINE 100 MG TAB PO ONE (17:55)
[2020-07-31 18:03] LABS: ALBUMIN 4.4 GM/DL (3.2-5.2); BILIRUBIN,DIRECT 0.3 MG/DL (0.0-0.2); BILIRUBIN,TOTAL 1.5 MG/DL (0.2-1.0); TOTAL PROTEIN 7.5 GM/DL (6.4-8.2)
[2020-07-31 18:18] LABS: PLATELET COUNT, AUTOMATED 77 10^3/uL (150-450)
[2020-07-31] MEDS ORDERED: KETOROLAC 30 MG/ML 1ML VIAL IV ONE (19:05)
[2020-07-31] MEDS ORDERED: cefTRIAXone SOD 1 GM in D5W MINI-BAG PLUS 50 ML IV ONE (20:25)
--- NOTE | 2020-07-31 20:44 | REPVR ---
PROCEDURE INFORMATION: Exam: US Retroperitoneal Limited, Kidneys Exam date and time: 07/31/2020 7:55 PM Age: 65 years old Clinical indication: Abdominal tenderness; Additional info: UTI, lots stones, recent UTI, R/O obstruction TECHNIQUE: Imaging protocol: Real-time ultrasound of the retroperitoneum with image documentation. Examination was focused on the kidneys. COMPARISON: CT ABD PELVIS WITH CONTRAST 05/31/2017 11:14 AM FINDINGS: Right kidney: Right kidney measures 11.5 cm. Multiple calyceal stones measuring up to 8 mm. No hydronephrosis. Normal cortical thickness and echotexture. Left kidney: Left kidney measures 11.8 cm. Multiple calyceal stones measuring up to 12 mm. No hydronephrosis. Normal cortical thickness and echotexture. 1.6 cm cyst in the lower pole. Bladder: Urinary bladder is unremarkable. IMPRESSION: 1. Multiple nonobstructing calyceal stones. 2. No hydronephrosis. Electronically signed by: Enrique Nash On 07/31/2020 20:44:14 PM
[2020-07-31] MEDS ORDERED: PYRI1TAB5 PO (21:21)
[2020-07-31] MEDS ORDERED: HYDR-3713 PO (21:21)
[2020-07-31] MEDS ORDERED: CIPR-249 PO (21:21)
[2020-07-31 21:32] VITALS: BP 123/73
== END 2020-07-31 21:40 | disposition home or self-care (01) ==
LOC: M ED 16:09
DX: N39.0 Urinary tract infection, site not specified (principal); N20.0 Calculus of kidney
CPT/HCPCS: 76775; 80047; 80076; 81001; 83690; 85025; 85049; 85055; 87088; 87186; 96365; 96375; 99284; J0696; J1885

== ENCOUNTER → 2020-08-13 | Outpatient (REF) | payer OTHER ==
[~2020-08-13] MED LIST changes: +CABE0.5T; +CIPR-249 PO; +HYDR-3713 PO; +HYDR12CA; +JANU100T; +POTA4.25; +PYRI1TAB5 PO; +SYNT112T2
[2020-08-13 19:26] LABS: APPEARANCE, URINE MANUAL CLEAR (CLEAR); COLOR, URINE MANUAL LT YELLOW (YELLOW)
[2020-08-13 19:27] LABS: BILIRUBIN, URINE MANUAL NEGATIVE (NEGATIVE); GLUCOSE, URINE (UA) MANUAL NEGATIVE (NEGATIVE); KETONE, URINE MANUAL NEGATIVE (NEGATIVE); PROTEIN, URINE MANUAL NEGATIVE (NEGATIVE); SPECIFIC GRAVITY,URINE MANUAL 1.015 (1.002-1.035); UROBILINOGEN, URINE MANUAL NORMAL (NORMAL)
[2020-08-13 19:28] LABS: BLOOD URINE MANUAL TRACE (NEGATIVE); LEUKOCYTE ESTERASE, URINE MAN NEGATIVE (NEGATIVE); NITRITE, URINE MANUAL NEGATIVE (NEGATIVE)
[2020-08-13 19:39] LABS: BACTERIA, URINE NONE SEEN; HYALINE CAST, URINE NONE SEEN /lpf (0-1); RBC, URINE 0-1 /hpf (0-3); SQUAMOUS EPITHELIAL CELL URINE NONE SEEN /hpf (SMALL AMT); WBC, URINE NONE SEEN /hpf (0-3)
== END ==
LOC: M LAB REF 16:19
PROVIDERS: ATTEND Nurse Practitioner Adult Health
DX: N18.31 Chronic kidney disease, stage 3a (principal)

== ENCOUNTER → 2020-11-17 | Outpatient (CLI) | payer OTHER ==
[~2020-11-17] MED LIST changes: -DOXY100C37 PO; +DOXY1CAP62 PO
--- NOTE | 2020-11-17 13:12 | REP ---
INDICATION: LT HIP PAIN, OA OF LT HIP. COMPARISON: No prior dedicated left hip CT examinations for comparison. Bone window technique performed on prior CT abdomen and pelvis 05/31/2017 was reviewed. TECHNIQUE: 3 x 3 mm contiguous helical scanning through the left hip was obtained and reconstructed in both sagittal and coronal planes. FINDINGS: The femoral head is spherical in shape with a minimal marginal osteophyte arising from its inferior surface the presence of this cannot definitely be confirmed when compared to the prior exam and possibly due to their technical differences. There is no clif subchondral sclerosis or subchondral cyst formation. There is slight asymmetric hip joint space narrowing which does not appear to be significantly changed. Incidental bone islands are again seen in the left acetabulum. There is no acute fracture or destructive osseous lesion. There is no evidence of a soft tissue mass or significant hip joint effusion. IMPRESSION: Chronic changes as described above. <Electronically signed by Adiel Watts > 11/17/20 [id number]
== END ==
LOC: M RAD 12:40
PROVIDERS: ATTEND Physician Assistant Surgical
DX: M25.552 Pain in left hip (principal); M16.12 Unilateral primary osteoarthritis, left hip

== ENCOUNTER → 2021-02-05 | Outpatient (CLI) | payer OTHER ==
[~2021-02-05] MED LIST changes: +DOXY-443 PO; -DOXY1CAP62 PO
--- NOTE | 2021-02-05 11:35 | REP ---
INDICATION: AVINASH MAMMO W/ DENSE BREAST TISSUE. COMPARISON: 02/13/2020 as well as other prior exams. TECHNIQUE: MLO and CC views bilateral breasts with tomosynthesis. FINDINGS: Heterogeneously dense breast parenchyma is present bilaterally. I suspect an oval 6 mm nodule medially in the left breast. There is no other evidence for a new mass or architectural distortion. No clustered microcalcifications are seen. The Volpara volumetric breast density pattern is C. IMPRESSION: BIRADS/ACR category 0, incomplete. I suspect a 6 mm nodule medially in the left breast. Recommend spot compression views and ultrasound to further evaluate. This patient's Tyrer-Cuzick lifetime breast cancer risk assessment score is 6.5%. This mammogram was interpreted with the aid of an FDA-approved computer-aided detection system. The patient states she had a clinical breast exam in June 2020. The patient letter being requested is M0. RECOMMENDATION: Recommend spot compression views and ultrasound left breast as discussed in detail above. <Electronically signed by Walter Dunbar > 02/05/21 [id number]
== END ==
LOC: M WHC 10:25
PROVIDERS: ATTEND Nurse Practitioner
DX: N63.42 Unspecified lump in left breast, subareolar (principal); R92.2 Inconclusive mammogram

== ENCOUNTER → 2021-03-01 | Outpatient (CLI) | payer OTHER ==
--- NOTE | 2021-03-02 08:50 | REP ---
INDICATION: LEFT BREAST ADD VIEWS/ DENSE BREAST U/S. COMPARISON: Screening mammogram, 02/05/2021. TECHNIQUE: 2D and 3D spot compression views were obtained of the focal asymmetry in the left breast. Targeted left breast ultrasound was performed. FINDINGS: In the middle 3rd of the left breast, above and medial to the nipple, in the upper inner quadrant, there is an isodense focal asymmetry measuring4 mm in diameter. Left breast ultrasound: 10 o'clock, 5 cm from the nipple, 3 x 3 x 3 mm, complicated cyst. The stress elastography measures 7 kPa. The Volpara volumetric breast density pattern is C, the breast is heterogeneously dense, which may obscure small masses. IMPRESSION: BIRADS/ACR : Category 3: Probably benign. This mammogram was interpreted with the aid of an FDA-approved computer-aided detection system. The patient letter being requested is M0. RECOMMENDATION: Six-month follow-up ultrasound evaluation of the left breast. <Electronically signed by Bony York > 03/02/21 [id number]
--- NOTE | 2021-03-02 14:14 | REP ---
INDICATION: Focal asymmetry, left breast. COMPARISON: Screening mammogram, 02/05/2021. TECHNIQUE: 2D and 3D spot compression views were obtained of the focal asymmetry in the left breast. Targeted left breast ultrasound was performed. FINDINGS: In the middle 3rd of the left breast, above and medial to the nipple, in the upper inner quadrant, there is an isodense focal asymmetry measuring 4 mm in diameter. Left breast ultrasound: 10 o'clock, 5 cm from the nipple, 3 x 3 x 3 mm, complicated cyst. The stress elastography measures 7 kPa. The Volpara volumetric breast density pattern is C, the breast is heterogeneously dense, which may obscure small masses. IMPRESSION: BIRADS/ACR : Category 3: Probably benign. This mammogram was interpreted with the aid of an FDA-approved computer-aided detection system. The patient letter being requested is M3. RECOMMENDATION: Six-month follow-up ultrasound evaluation of the left breast. <Electronically signed by Bony York > 03/02/21 [id number]
== END ==
LOC: M WHC 10:29
PROVIDERS: ATTEND Nurse Practitioner
DX: R92.2 Inconclusive mammogram (principal); N63.22 Unspecified lump in the left breast, upper inner quadrant
CPT/HCPCS: 76642; 77065; G0279

== ENCOUNTER → 2022-06-03 | Outpatient (CLI) | payer OTHER ==
[2022-06-03 09:45] LABS: BASO % 0.2 % (0.0-1.0); EOS # 0.2 10^3/uL (0.0-0.5); EOS % 2.9 % (0.0-3.0); HEMATOCRIT 45.3 % (36.0-47.0); MEAN CORPUSCULAR HEMOGLOBIN 24.8 pg (27.0-33.0); MEAN CORPUSCULAR HGB CONC 30.9 g/dl (32.0-36.5); MEAN CORPUSCULAR VOLUME 80.3 fl (80.0-96.0); MONO # 0.3 10^3/uL (0.0-0.8); MONO % 4.5 % (2.0-8.0); NEUTROPHILS # 4.1 10^3/uL (1.5-8.5); NEUTROPHILS % 73.7 % (36.0-66.0); RED BLOOD COUNT 5.64 10^6/uL (4.00-5.40); WHITE BLOOD COUNT 5.6 10^3/uL (4.0-10.0)
[2022-06-03 09:50] LABS: AMORPHOUS SEDIMENT SMALL (NEGATIVE); BACTERIA, URINE AUTO 1+ (NEGATIVE); RBC, URINE AUTO 158 /HPF (0-3); SQUAMOUS EPITHELIAL CELL UR AU 0 /HPF (0-6); WBC, URINE AUTO 29 /HPF (0-3)
[2022-06-03 10:04] LABS: PLATELET COUNT, AUTOMATED 62 10^3/uL (150-450)
[2022-06-03 10:13] LABS: ALBUMIN 3.9 G/DL (3.2-5.2); ALKALINE PHOSPHATASE 73 U/L (46-116); ALT/SGPT 15 U/L (7.0-40); AST/SGOT 13 U/L (<34); BILIRUBIN,TOTAL 1.5 MG/DL (0.3-1.2); BLOOD UREA NITROGEN 15 MG/DL (9-23); CARBON DIOXIDE LEVEL 30 MMOL/L (20-31); CHLORIDE LEVEL 108 MMOL/L (98-107); CREATININE FOR GFR 0.97 MG/DL (0.55-1.30); GLOMERULAR FILTRATION RATE > 60.0 (>45); GLUCOSE, FASTING 87 MG/DL (74-106); POTASSIUM SERUM 4.5 MMOL/L (3.5-5.1); SODIUM LEVEL 141 MMOL/L (136-145); TOTAL PROTEIN 6.6 G/DL (5.7-8.2)
== END ==
LOC: M LAB 08:23
PROVIDERS: ATTEND Urology
DX: N20.0 Calculus of kidney (principal)

== ENCOUNTER → 2022-06-08 | Outpatient (REF) | payer OTHER ==
[2022-06-08 16:56] LABS: AMORPHOUS SEDIMENT SMALL (NEGATIVE); APPEARANCE, URINE CLOUDY (CLEAR); BACTERIA, URINE AUTO 1+ (NEGATIVE); BILIRUBIN, URINE AUTO NEGATIVE (NEGATIVE); BLOOD, URINE BLOOD 3+ (NEGATIVE); COLOR, URINE YELLOW (YELLOW); GLUCOSE, URINE (UA) AUTO NEGATIVE (NEGATIVE); KETONE, URINE AUTO NEGATIVE (NEGATIVE); LEUKOCYTE ESTERASE, URINE AUTO 3+ (NEGATIVE); NITRITE, URINE AUTO NEGATIVE (NEGATIVE); PROTEIN, URINE AUTO 1+ mg/dL (NEGATIVE); RBC, URINE AUTO 124 /HPF (0-3); SPECIFIC GRAVITY URINE AUTO 1.011 (1.002-1.035); SQUAMOUS EPITHELIAL CELL UR AU 1 /HPF (0-6); UROBILINOGEN, URINE AUTO 0.2 mg/dL (0.0-2.0); WBC, URINE AUTO 111 /HPF (0-3)
== END ==
LOC: M LAB REF 16:19
PROVIDERS: ATTEND Internal Medicine
DX: Z01.818 Encounter for other preprocedural examination (principal)

== ENCOUNTER 2022-06-30 13:04 | Emergency (ER) | payer OTHER ==
[~2022-06-30] VITALS: Ht 175.3 cm; Wt 71.9 kg
[2022-06-30] MEDS ORDERED: MORPHINE 4 MG/ML 1ML VIAL IV ONE (13:45)
[2022-06-30] MEDS ORDERED: ONDANSETRON 4MG 2ML VIAL IV ONE (13:45)
[2022-06-30 13:58] LABS: BASO % 0.2 % (0.0-1.0); EOS # 0.1 10^3/uL (0.0-0.5); EOS % 1.3 % (0.0-3.0); HEMATOCRIT 43.3 % (36.0-47.0); HEMOGLOBIN 13.8 g/dl (12.0-15.5); LYMPH % 9.5 % (24.0-44.0); MEAN CORPUSCULAR HEMOGLOBIN 25.1 pg (27.0-33.0); MEAN CORPUSCULAR HGB CONC 31.9 g/dl (32.0-36.5); MEAN CORPUSCULAR VOLUME 78.7 fl (80.0-96.0); MONO # 0.4 10^3/uL (0.0-0.8); MONO % 4.1 % (2.0-8.0); NEUTROPHILS % 84.6 % (36.0-66.0); WHITE BLOOD COUNT 10.7 10^3/uL (4.0-10.0)
[2022-06-30 14:16] LABS: BILIRUBIN,DIRECT 0.3 MG/DL (<0.4); BILIRUBIN,TOTAL 1.4 MG/DL (0.3-1.2); CALCIUM LEVEL 10.1 MG/DL (8.3-10.6); CREATININE FOR GFR 1.14 MG/DL (0.55-1.30); GLOMERULAR FILTRATION RATE 50.8 (>45); POTASSIUM SERUM 4.4 MMOL/L (3.5-5.1); TOTAL PROTEIN 6.6 G/DL (5.7-8.2)
[2022-06-30 14:38] LABS: RSV AMPLIFICATION NEGATIVE (NEGATIVE)
[2022-06-30 14:56] LABS: PLATELET COUNT, AUTOMATED 87 10^3/uL (150-450)
[2022-06-30] MEDS ORDERED: TAMSULOSIN 0.4 MG CAP PO ONE (15:15)
[2022-06-30] MEDS ORDERED: KETOROLAC 30 MG/ML 1ML VIAL IV ONE (15:15)
[2022-06-30] MEDS ORDERED: NS 1,000 ML IV ONE (15:15)
[2022-06-30] MEDS ORDERED: MORPHINE 2 MG/ML 1ML VIAL IV ONE (16:00)
[2022-06-30] MEDS ORDERED: PERCOCET 5MG/325MG TAB PO ONE (16:00)
[2022-06-30] MEDS ORDERED: ONDA4TAB6 PO (17:05)
[2022-06-30] MEDS ORDERED: KETO10TAB PO (17:05)
[2022-06-30] MEDS ORDERED: FLOM0.4C39 PO (17:05)
[2022-06-30] MEDS ORDERED: CEFD300C41 PO (17:05)
[2022-06-30] MEDS ORDERED: PERC5TAB12 PO (17:05)
[2022-06-30 17:37] VITALS: BP 135/63
== END 2022-06-30 17:45 | disposition home or self-care (01) ==
LOC: M ED 13:04
DX: N20.1 Calculus of ureter (principal); Z87.442 Personal history of urinary calculi; Z79.899 Other long term (current) drug therapy
CPT/HCPCS: 74176; 80048; 80076; 81001; 83690; 85025; 85049; 85055; 87086; 87631; 96374; 96375; 96376; 99284; J1885; J2405

== ENCOUNTER → 2022-07-07 | Outpatient (CLI) | payer OTHER ==
[~2022-07-07] MED LIST changes: +CEFD300C41 PO; +FLOM0.4C39 PO; +KETO10TAB PO; +ONDA4TAB6 PO; +PERC5TAB12 PO
== END ==
LOC: M WHC 10:02
PROVIDERS: ATTEND Urology
DX: N39.0 Urinary tract infection, site not specified (principal); N28.1 Cyst of kidney, acquired; N20.0 Calculus of kidney; N39.43 Post-void dribbling

== ENCOUNTER 2023-06-25 09:31 | Emergency (ER) | payer MEDICARE, OTHER ==
[~2023-06-25] VITALS: Ht 175.3 cm; Wt 67.7 kg
[~2023-06-25 09:31] MED LIST changes: +CEFD1CAP9 PO; -CEFD300C41 PO
[2023-06-25] MEDS ORDERED: MORPHINE 2 MG/ML 1ML VIAL IV PRN (10:05)
[2023-06-25] MEDS: MORPHINE 2 MG/ML 1ML VIAL IV ONE (10:06)
[2023-06-25] MEDS: ONDANSETRON 4MG 2ML VIAL IV ONE (10:07)
[2023-06-25 10:12] LABS: HEMOGLOBIN 14.7 g/dl (12.0-15.5); MEAN CORPUSCULAR HEMOGLOBIN 25.5 pg (27.0-33.0); MEAN CORPUSCULAR VOLUME 79.9 fl (80.0-96.0); RED BLOOD COUNT 5.76 10^6/uL (4.00-5.40); WHITE BLOOD COUNT 6.7 10^3/uL (4.0-10.0)
[2023-06-25 10:13] LABS: BASO % 0.3 % (0.0-1.0); EOS # 0.2 10^3/uL (0.0-0.5); EOS % 2.4 % (0.0-3.0); LYMPH # 1.1 10^3/uL (1.5-5.0); LYMPH % 15.7 % (24.0-44.0); MONO # 0.3 10^3/uL (0.0-0.8); MONO % 3.9 % (2.0-8.0); NEUTROPHILS # 5.2 10^3/uL (1.5-8.5); NEUTROPHILS % 77.6 % (36.0-66.0); PLATELET COUNT, AUTOMATED 78 10^3/uL (150-450)
[2023-06-25] MEDS ORDERED: ISOVUE-370 76% 100ML VIAL As Ordered ONE (10:18)
[2023-06-25 10:24] LABS: CK-MB VALUE MASS < 1.0 NG/ML (<3.6)
[2023-06-25 10:25] LABS: LIPASE 25 U/L (12-53)
[2023-06-25 10:26] LABS: CPK CREATINE PHOSPHOKINASE 46 U/L (34-145); MB/CK RELATIVE INDEX 2.17 (< OR =4)
[2023-06-25 10:28] LABS: FREE T4 1.51 NG/DL (0.89-1.76); THYROID STIMULATING HORMONE 0.357 uIU/ML (0.55-4.78)
[2023-06-25 10:35] LABS: ALKALINE PHOSPHATASE 77 U/L (46-116); ALT/SGPT 20 U/L (7.0-40); AST/SGOT 14 U/L (<34); BILIRUBIN,DIRECT 0.5 MG/DL (<0.4); BILIRUBIN,TOTAL 2.2 MG/DL (0.3-1.2); BLOOD UREA NITROGEN 19 MG/DL (9-23); CALCIUM LEVEL 9.9 MG/DL (8.3-10.6); CARBON DIOXIDE LEVEL 30 MMOL/L (20-31); CHLORIDE LEVEL 106 MMOL/L (98-107); CREATININE FOR GFR 1.01 MG/DL (0.55-1.30); GLOMERULAR FILTRATION RATE 58.2 (>45); GLUCOSE, FASTING 108 MG/DL (74-106); MAGNESIUM LEVEL 1.6 MG/DL (1.8-2.4); POTASSIUM SERUM 3.8 MMOL/L (3.5-5.1); SODIUM LEVEL 142 MMOL/L (136-145); TOTAL PROTEIN 6.6 G/DL (5.7-8.2)
[2023-06-25] MEDS: NITROGLYCERIN 0.4MG SUBL TABLET SL PRN (10:44)
[2023-06-25] MEDS: NS 1,000 ML IV ONE (10:53)
[2023-06-25] MEDS: MAG SULF 1GM/100ML (MAG RUN) 1 GM in IV 1 EA IV ONE (10:53)
[2023-06-25 11:05] LABS: RSV AMPLIFICATION NEGATIVE (NEGATIVE)
[2023-06-25] MEDS: FAMOTIDINE 20 MG TAB PO ONE (11:16)
[2023-06-25 11:18] VITALS: BP 148/91
[2023-06-25 11:27] LABS: CK-MB VALUE MASS 1.5 NG/ML (<3.6); MB/CK RELATIVE INDEX 3.12 (< OR =4)
[2023-06-25] MEDS: HEPARIN SOD (PORCINE) 5000UNITS/ML 1ML VIAL/SYRINGE IV ONE (11:31)
[2023-06-25] MEDS: HEPARIN DRIP 25,000 UNITS in IV 1 EA IV SCH (11:33)
[2023-06-25] MEDS: ACETAMINOPHEN TAB 650MG DOSE (2X325MG) PO ONE (11:34)
[2023-06-25] MEDS: CLOPIDOGREL 300 MG TAB (PLAVIX) PO ONE (11:35)
[2023-06-25 11:40] VITALS: BP 162/77; TEMP 98.3; O2SAT 98
[2023-06-25 11:55] LABS: INR 1.12; PARTIAL THROMBOPLASTIN TIME 36.2 SECONDS (24.8-34.2)
== END 2023-06-25 11:45 | disposition short-term general hospital (02) ==
LOC: M ED 09:31 → EDBD 09:31 → M ED 11:45
DX: I21.4 Non-ST elevation (NSTEMI) myocardial infarction (principal); R00.1 Bradycardia, unspecified; E11.9 Type 2 diabetes mellitus without complications; Z79.899 Other long term (current) drug therapy; Z79.1 Long term (current) use of non-steroidal anti-inflammatories (NSAID); Z79.83 Long term (current) use of bisphosphonates
CPT/HCPCS: 71045; 71275; 80047; 80048; 80076; 82550; 82553; 83690; 83735; 84439; 84443; 84484; 85025; 85049; 85055; 85610; 85730; 87631; 93005; 93041; 94760; 96365; 96375; 99285; J2405; J3475; Q9967

== ENCOUNTER → 2023-07-26 | Outpatient (CLI) | payer OTHER ==
[~2023-07-26] MED LIST changes: +DOXY-323 PO; -DOXY-443 PO
== END ==
LOC: M WHC 08:36
PROVIDERS: ATTEND Internal Medicine
DX: Z13.820 Encounter for screening for osteoporosis (principal); M85.851 Other specified disorders of bone density and structure, right thigh; M85.852 Other specified disorders of bone density and structure, left thigh

== ENCOUNTER → 2023-08-04 | Outpatient (CLI) | payer OTHER | LOC: M WHC 09:41 | PROVIDERS: ATTEND Obstetrics & Gynecology Gynecologic Oncology | DX: Z12.31 Encounter for screening mammogram for malignant neoplasm of breast (principal) ==

== ENCOUNTER → 2023-09-05 | Outpatient (CLI) | payer OTHER ==
[~2023-09-05] MED LIST changes: +ONDA-282 PO; -ONDA4TAB6 PO
[2023-09-05 17:37] LABS: HEMATOCRIT 43.5 % (36.0-47.0); HEMOGLOBIN 13.6 g/dl (12.0-15.5); MEAN CORPUSCULAR HEMOGLOBIN 25.4 pg (27.0-33.0); MEAN CORPUSCULAR HGB CONC 31.3 g/dl (32.0-36.5); MEAN CORPUSCULAR VOLUME 81.3 fl (80.0-96.0); RED BLOOD COUNT 5.35 10^6/uL (4.00-5.40); WHITE BLOOD COUNT 5.9 10^3/uL (4.0-10.0)
[2023-09-05 17:49] LABS: PLATELET COUNT, AUTOMATED 86 10^3/uL (150-450)
[2023-09-05 18:18] LABS: THYROID STIMULATING HORMONE 0.647 uIU/ML (0.55-4.78)
[2023-09-05 18:20] LABS: BLOOD UREA NITROGEN 20 MG/DL (9-23); CALCIUM LEVEL 10.2 MG/DL (8.3-10.6); CARBON DIOXIDE LEVEL 30 MMOL/L (20-31); CHLORIDE LEVEL 104 MMOL/L (98-107); CREATININE FOR GFR 0.89 MG/DL (0.55-1.30); GLOMERULAR FILTRATION RATE > 60.0 (>45); GLUCOSE, FASTING 102 MG/DL (74-106); POTASSIUM SERUM 3.8 MMOL/L (3.5-5.1); SODIUM LEVEL 140 MMOL/L (136-145)
== END ==
LOC: M PLALAB 16:27
PROVIDERS: ATTEND Internal Medicine Hematology
DX: D69.3 Immune thrombocytopenic purpura (principal)

== ENCOUNTER → 2024-01-02 | Outpatient (REF) | payer OTHER ==
[~2024-01-02] MED LIST changes: -DOXY-323 PO; +DOXY-441 PO
== END ==
LOC: M LAB REF 16:36
PROVIDERS: ATTEND Internal Medicine
DX: I25.10 Atherosclerotic heart disease of native coronary artery without angina pectoris (principal)

== ENCOUNTER → 2024-01-18 | Outpatient (CLI) | payer OTHER ==
[~2024-01-18] MED LIST changes: +PROHANCE 279.3MG/ML 15ML VIAL ONE
== END ==
LOC: M PLAIMG 12:25
PROVIDERS: ATTEND Internal Medicine
DX: K76.89 Other specified diseases of liver (principal); D35.02 Benign neoplasm of left adrenal gland; N28.1 Cyst of kidney, acquired
CPT/HCPCS: 74183; A9576